=== PATIENT | male | born 1970 | race Caucasian/White ===

== ENCOUNTER 2020-03-24 18:34 | Emergency (ER) | payer MEDICAID ==
[~2020-03-24] VITALS: Ht 172.7 cm; Wt 81.0 kg
[~2020-03-24 18:34] MED LIST: HYDR-3972 PO; OMEP20TA5 PO
[2020-03-24 19:51] LABS: ALBUMIN 3.6 G/DL (3.4-5.0); ANION GAP 9 (8-16); BLOOD UREA NITROGEN 25 MG/DL (7-18); BUN/CREATININE RATIO 19.2 (5.4-32.0); CALCIUM 9.5 MG/DL (8.5-10.1); CHLORIDE 106 MMOL/L (99-107); GLUCOSE 127 MG/DL (70-104); POTASSIUM 3.8 MMOL/L (3.5-5.1); SODIUM 145 MMOL/L (135-145); TOTAL CARBON DIOXIDE 30.3 MMOL/L (24-32); eGFR 58 ML/MIN
[2020-03-24 19:58] LABS: BASOPHILS % (AUTO) 0.2 % (0-1); EOSINOPHILS # (AUTO) 0.1 X10'3 (0-0.9); EOSINOPHILS % (AUTO) 0.3 % (0-6); HEMOGLOBIN 14.4 g/dl (14.0-17.9); LYMPHOCYTES # (AUTO) 1.6 X10'3 (1.1-4.8); LYMPHOCYTES % (AUTO) 9.8 % (21-51); MEAN CORPUSCULAR HEMOGLOBIN 26.5 PG (27.0-31.0); MEAN CORPUSCULAR HGB CONC 32.1 g/dL (33.0-36.5); MEAN CORPUSCULAR VOLUME 82.7 FL (78-98); MEAN PLATELET VOLUME 8.1 FL (7.4-10.4); MONOCYTES # (AUTO) 0.8 X10'3 (0-0.9); MONOCYTES % (AUTO) 4.9 % (2-12); NEUTROPHILS # (AUTO) 13.7 X10'3 (1.8-7.7); NEUTROPHILS % (AUTO) 84.8 % (42-75); PLATELET COUNT 303 X10'3 (140-440); RED BLOOD COUNT 5.44 X10'6 (4.70-6.10); RED CELL DISTRIBUTION WIDTH 14.8 % (11.5-14.5); WHITE BLOOD COUNT 16.2 X10'3 (4.5-11.0)
[2020-03-24 21:09] VITALS: BP 122/80
== END 2020-03-24 22:54 | disposition home or self-care (01) ==
LOC: ER 18:34
DX: R55 Syncope and collapse (principal); R11.10 Vomiting, unspecified; F15.90 Other stimulant use, unspecified, uncomplicated; Z98.890 Other specified postprocedural states; Z79.899 Other long term (current) drug therapy
CPT/HCPCS: 36415; 70450; 80048; 85025; 93005; 99285

== ENCOUNTER 2021-04-13 10:15 | Emergency (ER) | payer MEDICAID ==
[~2021-04-13] VITALS: Ht 172.7 cm; Wt 79.5 kg
[2021-04-13 10:25] VITALS: BP 128/101
[2021-04-13] MEDS ORDERED: acetaminophen 325mg tablet PO ONE (10:50)
[2021-04-13] MEDS ORDERED: proCHLORperazine 10mg tablet PO ONE (10:50)
[2021-04-13] MEDS ORDERED: ibuprofen tablet 400 MG TABLET PO ONE (10:50)
== END 2021-04-13 12:29 | disposition home or self-care (01) ==
LOC: ER 10:16
DX: U07.1 COVID-19 (principal)
CPT/HCPCS: 87635; 99284; C9803; Q0164

== ENCOUNTER 2022-01-15 10:44 | Inpatient (IN) | payer MEDICAID ==
[~2022-01-15] VITALS: Ht 172.7 cm; Wt 81.8 kg
[~2022-01-15 10:44] MED LIST changes: +CEPH-585 PO; +IBUP-1986 PO; +OMEP20TA43 PO; -OMEP20TA5 PO
[2022-01-15] MEDS ORDERED: acetaminophen 325mg tablet PO STA (10:53)
[2022-01-15] MEDS ORDERED: piperacillin/tazo 3.375gm/50ml 50 ML IV ONE (10:55)
[2022-01-15] MEDS ORDERED: normal saline 1000ML IV soln IV ONE (10:55)
[2022-01-15] MEDS ORDERED: vancomycin/NS 1 GM ADD-VANTAGE 250 ML IV ONE (10:55)
[2022-01-15 11:08] LABS: BASOPHILS % (AUTO) 0.2 % (0-1); EOSINOPHILS % (AUTO) 0 % (0-6); HEMATOCRIT 32.5 % (42.0-52.0); HEMOGLOBIN 10.5 g/dl (14.0-17.9); LYMPHOCYTES % (AUTO) 7.1 % (21-51); MEAN CORPUSCULAR HEMOGLOBIN 25.7 PG (27.0-31.0); MEAN CORPUSCULAR HGB CONC 32.4 g/dL (33.0-36.5); MEAN CORPUSCULAR VOLUME 79.5 FL (78-98); MEAN PLATELET VOLUME 8.1 FL (7.4-10.4); MONOCYTES % (AUTO) 6.9 % (2-12); NEUTROPHILS # (AUTO) 11.8 X10'3 (1.8-7.7); NEUTROPHILS % (AUTO) 85.8 % (42-75); PLATELET COUNT 222 X10'3 (140-440); RED BLOOD COUNT 4.09 X10'6 (4.70-6.10); RED CELL DISTRIBUTION WIDTH 15.3 % (11.5-14.5); WHITE BLOOD COUNT 13.8 X10'3 (4.5-11.0)
[2022-01-15 11:34] LABS: GLUCOSE 118 MG/DL (70-104)
[2022-01-15 11:35] LABS: ALANINE AMINOTRANSFERASE 33 U/L (12-78); ALBUMIN 2.8 G/DL (3.4-5.0); ALBUMIN/GLOBULIN RATIO 0.7 (1.1-1.5); ALKALINE PHOSPHATASE 86 IU/L (46-116); ANION GAP 11 (8-16); ASPARTATE AMINO TRANSFERASE 34 U/L (10-37); BILIRUBIN,TOTAL 0.8 MG/DL (0.1-1.0); BLOOD UREA NITROGEN 20 MG/DL (7-18); BUN/CREATININE RATIO 20.8 (5.4-32.0); CALCIUM 8.3 MG/DL (8.5-10.1); CHLORIDE 97 MMOL/L (99-107); CREATININE 0.96 MG/DL (0.60-1.10); SODIUM 133 MMOL/L (135-145); TOTAL CARBON DIOXIDE 24.8 MMOL/L (24-32); TOTAL PROTEIN 6.8 G/DL (6.4-8.2); eGFR 82 ML/MIN
[2022-01-15 11:43] LABS: ETHANOL < 0.010 GM/DL (0.0-0.010)
[2022-01-15] MEDS ORDERED: POTASSIUM BICARB 20meq eff tab 20 MEQ TABLET.EFF PO PRN ×2 (12:15)
[2022-01-15] MEDS ORDERED: magnesium Cl slow-release 64mg tablet PO PRN (12:15)
[2022-01-15] MEDS ORDERED: magnesium hydroxide 30ml (MOM) UD suspension PO PRN (12:15)
[2022-01-15] MEDS ORDERED: ondansetron/PF 4mg/2ml inj IV PRN (12:15)
[2022-01-15] MEDS: normal saline 1000ml 1,000 ML IV SCH ×2 (12:15→22:26)
[2022-01-15] MEDS ORDERED: magnesium 4gm in 100ml NS 100 ML IV PRN (12:15)
[2022-01-15] MEDS ORDERED: morphine 2 MG/ML inj. syringe IV PRN ×2 (12:15)
[2022-01-15] MEDS ORDERED: potassium CL 10mEq/100ml bag 100 ML IV PRN (12:15)
[2022-01-15] MEDS ORDERED: magnesium 2GM in 50ml NS 50 ML IV PRN (12:15)
[2022-01-15] MEDS ORDERED: mag hydrox/Alum hydrox/simeth 30ml oral suspension PO PRN (12:15)
[2022-01-15 12:20] LABS: C-REACTIVE PROTEIN 19.45 MG/DL (0.0-0.5)
[2022-01-15 13:10] LABS: UA COLLECTION TYPE VOIDED
[2022-01-15 13:11] LABS: CLARITY,URINE CLEAR (Clear); COLOR,URINE YELLOW (Yellow); GLUCOSE, URINE NEGATIVE (Neg); KETONES,URINE NEGATIVE (Neg); LEUKOCYTE ESTERASE ,URINE NEGATIVE (Neg); NITRITES, URINE NEGATIVE (Neg); OCCULT BLOOD,URINE TRACE-INTACT (Neg); PROTEIN,URINE NEGATIVE (Neg); UROBILINOGEN,URINE 0.2 E.U/dL (0.2-1.0)
[2022-01-15 13:16] LABS: BACTERIA,URINE NONE SEEN /HPF (Neg); SQUAMOUS EPITHELIAL CELL,UR FEW /LPF (FEW); WBC,URINE NONE SEEN /HPF (0-4)
[2022-01-15 13:23] LABS: URINE AMPHETAMINE SCREEN POSITIVE (Neg); URINE BARBITUATE SCREEN NEGATIVE (Neg); URINE BENZODIAZEPINES SCREEN NEGATIVE (Neg); URINE CANNABINOID SCREEN NEGATIVE (Neg); URINE COCAINE SCREEN NEGATIVE (Neg); URINE METHADONE SCREEN NEGATIVE (Neg); URINE PHENCYCLIDINE SCREEN NEGATIVE (Neg)
--- NOTE | 2022-01-15 15:25 | NUR ---
TC TO PCU X 2 ATTEMPTS TO GIVE REPORT. NURSE NOT AVAILABLE OR READY FOR REPORT. SPOKE WITH CHARGE NURSE IN REGARDS TO NEED TO GET PATIENT TO INPATIENT ROOM AND FREE UP ER BED.
[2022-01-15 15:53] VITALS: BP 139/93
[2022-01-15] MEDS ORDERED: NO HOME MEDS (16:06)
--- NOTE | 2022-01-15 17:06 | NUR ---
Per patient, he is not homeless and that he lives in a trailer by himself
[2022-01-15] MEDS: acetaminophen 325mg tablet PO PRN (17:38)
--- NOTE | 2022-01-15 17:46 | NUR ---
Paged Dr. Bhandari PAGER ID: [phone] MESSAGE: HERIBERTO Contreras RN ext [phone] RE: Thom Guardado. Patient running fever 101F. He came her for cellulitis but he also has cough and chills. Do you want us to do covid test?
[2022-01-15 18:00] VITALS: BP 136/66
--- NOTE | 2022-01-15 18:19 | NUR ---
Problems reprioritized. Patient report given, questions answered & plan of care reviewed with Amelia VIDALES.
[2022-01-15] MEDS: K and/or MAG REPLACEMENT MC SCH (20:00)
[2022-01-15] MEDS: docusate sod 100mg capsule PO SCH (20:14)
[2022-01-15] MEDS: heparin, porcine 5000 units/ml vial SQ SCH (20:14)
[2022-01-15] MEDS ORDERED: temazepam 15mg capsule PO PRN (21:00)
[2022-01-15 22:00] VITALS: BP 116/77
[2022-01-16] MEDS: vancomycin/NS 1 GM ADD-VANTAGE 250 ML IV SCH ×2 (00:17→13:07)
[2022-01-16 02:00] VITALS: BP 151/84
[2022-01-16] MEDS: acetaminophen 325mg tablet PO PRN ×3 (02:25→17:49)
[2022-01-16 06:00] VITALS: BP 142/77
--- NOTE | 2022-01-16 06:16 | NUR ---
Problems reprioritized. Patient report given, questions answered & plan of care reviewed with FLASH Leos and FLASH Higuera.
[2022-01-16 06:31] LABS: BASOPHILS % (AUTO) 0.2 % (0-1); EOSINOPHILS # (AUTO) 0.1 X10'3 (0-0.9); EOSINOPHILS % (AUTO) 0.7 % (0-6); HEMATOCRIT 34.5 % (42.0-52.0); LYMPHOCYTES # (AUTO) 1.5 X10'3 (1.1-4.8); LYMPHOCYTES % (AUTO) 11.8 % (21-51); MEAN CORPUSCULAR VOLUME 81.5 FL (78-98); MONOCYTES # (AUTO) 0.9 X10'3 (0-0.9); MONOCYTES % (AUTO) 6.9 % (2-12); NEUTROPHILS # (AUTO) 10.5 X10'3 (1.8-7.7); NEUTROPHILS % (AUTO) 80.4 % (42-75); PLATELET COUNT 251 X10'3 (140-440); RED BLOOD COUNT 4.24 X10'6 (4.70-6.10); RED CELL DISTRIBUTION WIDTH 15.4 % (11.5-14.5); WHITE BLOOD COUNT 13.1 X10'3 (4.5-11.0)
--- NOTE | 2022-01-16 06:42 | NUR ---
Patient in room PCU 3011Q. I have received report from mary kate, and had the opportunity to ask questions and assume patient care.
[2022-01-16 06:54] LABS: ALBUMIN 2.5 G/DL (3.4-5.0); ANION GAP 9 (8-16); BILIRUBIN,TOTAL 0.5 MG/DL (0.1-1.0); BLOOD UREA NITROGEN 11 MG/DL (7-18); BUN/CREATININE RATIO 12.4 (5.4-32.0); CALCIUM 8.4 MG/DL (8.5-10.1); CHLORIDE 107 MMOL/L (99-107); CREATININE 0.89 MG/DL (0.60-1.10); GLUCOSE 97 MG/DL (70-104); POTASSIUM 3.8 MMOL/L (3.5-5.1); SODIUM 141 MMOL/L (135-145); TOTAL PROTEIN 6.6 G/DL (6.4-8.2); eGFR 89 ML/MIN
[2022-01-16 06:55] LABS: ALANINE AMINOTRANSFERASE 26 U/L (12-78); ALBUMIN/GLOBULIN RATIO 0.6 (1.1-1.5); ALKALINE PHOSPHATASE 85 IU/L (46-116); ASPARTATE AMINO TRANSFERASE 26 U/L (10-37)
[2022-01-16] MEDS: K and/or MAG REPLACEMENT MC SCH ×2 (08:00→19:28)
[2022-01-16] MEDS: normal saline 1000ml 1,000 ML IV SCH ×2 (08:15→13:07)
[2022-01-16] MEDS: docusate sod 100mg capsule PO SCH ×2 (08:55→20:31)
[2022-01-16] MEDS: heparin, porcine 5000 units/ml vial SQ SCH ×2 (08:55→20:31)
[2022-01-16 11:00] VITALS: BP 137/79
[2022-01-16 15:00] VITALS: BP 145/85
[2022-01-16] MEDS ORDERED: benzonatate 100mg capsule PO PRN (15:55)
--- NOTE | 2022-01-16 18:31 | NUR ---
Orientee documentation: I have reviewed and agree with all interventions, assessments performed and documented by FLASH Higuera.
--- NOTE | 2022-01-16 18:31 | NUR ---
Problems reprioritized. Patient report given, questions answered & plan of care reviewed with FLASH Ayala.
--- NOTE | 2022-01-16 18:37 | NUR ---
Patient in room PCU 3015. I have received report from TEMITOPE VIDALES and had the opportunity to ask questions and assume patient care.
[2022-01-16 18:40] VITALS: BP 153/75
[2022-01-16] MEDS: HYDROcodone/acetaminophen 5mg/325mg tablet PO PRN (20:32)
--- NOTE | 2022-01-16 22:00 | NUR ---
PATIENT REFUSED VITAL SIGNS
[2022-01-16] MEDS ORDERED: VANCOMYCIN LEVEL IV ONE (23:30)
[2022-01-17] MEDS: vancomycin/NS 1 GM ADD-VANTAGE 250 ML IV SCH (00:46)
[2022-01-17] MEDS: normal saline 1000ml 1,000 ML IV SCH ×2 (00:52→19:14)
[2022-01-17 02:00] VITALS: BP 160/97
--- NOTE | 2022-01-17 06:50 | NUR ---
Problems reprioritized. Patient report given, questions answered & plan of care reviewed with SHIVAM VIDALES.
[2022-01-17 06:51] LABS: BASOPHILS % (AUTO) 0.1 % (0-1); EOSINOPHILS # (AUTO) 0.2 X10'3 (0-0.9); EOSINOPHILS % (AUTO) 1.4 % (0-6); HEMATOCRIT 35.2 % (42.0-52.0); HEMOGLOBIN 11.4 g/dl (14.0-17.9); LYMPHOCYTES # (AUTO) 1.3 X10'3 (1.1-4.8); LYMPHOCYTES % (AUTO) 9.7 % (21-51); MEAN CORPUSCULAR HGB CONC 32.4 g/dL (33.0-36.5); MEAN PLATELET VOLUME 8.4 FL (7.4-10.4); MONOCYTES # (AUTO) 0.8 X10'3 (0-0.9); MONOCYTES % (AUTO) 5.8 % (2-12); NEUTROPHILS # (AUTO) 11.1 X10'3 (1.8-7.7); PLATELET COUNT 291 X10'3 (140-440); RED CELL DISTRIBUTION WIDTH 15.5 % (11.5-14.5); WHITE BLOOD COUNT 13.3 X10'3 (4.5-11.0)
[2022-01-17 07:33] LABS: ALANINE AMINOTRANSFERASE 32 U/L (12-78); ALBUMIN 2.4 G/DL (3.4-5.0); ALBUMIN/GLOBULIN RATIO 0.5 (1.1-1.5); ALKALINE PHOSPHATASE 113 IU/L (46-116); ANION GAP 11 (8-16); ASPARTATE AMINO TRANSFERASE 25 U/L (10-37); BILIRUBIN,TOTAL 0.3 MG/DL (0.1-1.0); BLOOD UREA NITROGEN 11 MG/DL (7-18); BUN/CREATININE RATIO 14.9 (5.4-32.0); CALCIUM 8.4 MG/DL (8.5-10.1); CHLORIDE 104 MMOL/L (99-107); CREATININE 0.74 MG/DL (0.60-1.10); GLUCOSE 95 MG/DL (70-104); POTASSIUM 3.9 MMOL/L (3.5-5.1); SODIUM 139 MMOL/L (135-145); TOTAL PROTEIN 6.8 G/DL (6.4-8.2); eGFR > 90 ML/MIN
[2022-01-17] MEDS: K and/or MAG REPLACEMENT MC SCH ×2 (07:35→20:00)
[2022-01-17] MEDS: heparin, porcine 5000 units/ml vial SQ SCH ×2 (07:37→19:17)
[2022-01-17] MEDS: docusate sod 100mg capsule PO SCH ×2 (07:37→19:18)
[2022-01-17 07:45] VITALS: BP 155/99
[2022-01-17] MEDS: HYDROcodone/acetaminophen 10/325mg tab PO PRN (10:25)
[2022-01-17 10:29] VITALS: BP 156/103
--- NOTE | 2022-01-17 11:20 | NUR ---
ASSUMED CARE OF THIS 51YR OLD MALE PATIENT SINCE THIS AM, ASLEEP EASILY AROUSABLE. AOX4. ON ROOM AIR. VSS. HAD 100% BREAKFAST SERVED AND CONTINUED SLEEPING. NORCO GIVEN PER PAIN SCALE. IVF ORDERED. SAFETY MAINTAINED. MONITORING ONGOING
[2022-01-17] MEDS: VANCOmycin 1250MG/NS 250ml Bag 250 ML IV SCH (12:09)
[2022-01-17] MEDS ORDERED: lisinopril 10 MG tablet PO ONE (16:25)
[2022-01-17 16:40] VITALS: BP 171/101
[2022-01-17] MEDS: acetaminophen 325mg tablet PO PRN (16:46)
--- NOTE | 2022-01-17 18:10 | NUR ---
Patient in room PCU 3015. I have received report from Roe VIDALES and had the opportunity to ask questions and assume patient care.
--- NOTE | 2022-01-17 18:11 | NUR ---
PT'S STATUS UNCHANGED. REPORT GIVEN TO FEROZ MIGUEL FOR RESUMPTION OF CARE
--- NOTE | 2022-01-17 18:53 | NUR ---
Pt refused 1800 vitals Addendum: 01/17/22 at 1854 by Angelica Melgoza LVN Amended: Links added.
[2022-01-17] MEDS: HYDROcodone/acetaminophen 5mg/325mg tablet PO PRN (19:22)
[2022-01-17 22:00] VITALS: BP 125/76
[2022-01-17] MEDS: ceFAZolin/D5W- 1GM premix 50 ML IV SCH (23:40)
[2022-01-18] MEDS: VANCOmycin 1250MG/NS 250ml Bag 250 ML IV SCH ×2 (00:19→14:50)
[2022-01-18 02:00] VITALS: BP 164/102
--- NOTE | 2022-01-18 03:47 | NUR ---
AGREE WITH BOILER OPERATOR PHYSICAL ASSESSMENT CHARTED
[2022-01-18 06:00] VITALS: BP 146/99
[2022-01-18 06:26] LABS: BASOPHILS % (AUTO) 0.3 % (0-1); EOSINOPHILS # (AUTO) 0.3 X10'3 (0-0.9); EOSINOPHILS % (AUTO) 2.6 % (0-6); HEMATOCRIT 35.2 % (42.0-52.0); HEMOGLOBIN 11.6 g/dl (14.0-17.9); LYMPHOCYTES # (AUTO) 1.6 X10'3 (1.1-4.8); MEAN CORPUSCULAR HEMOGLOBIN 26.2 PG (27.0-31.0); MEAN CORPUSCULAR HGB CONC 32.9 g/dL (33.0-36.5); MEAN CORPUSCULAR VOLUME 79.6 FL (78-98); MEAN PLATELET VOLUME 8.3 FL (7.4-10.4); MONOCYTES # (AUTO) 0.9 X10'3 (0-0.9); NEUTROPHILS # (AUTO) 9.5 X10'3 (1.8-7.7); NEUTROPHILS % (AUTO) 77.1 % (42-75); PLATELET COUNT 347 X10'3 (140-440); RED BLOOD COUNT 4.42 X10'6 (4.70-6.10); RED CELL DISTRIBUTION WIDTH 15.6 % (11.5-14.5); WHITE BLOOD COUNT 12.3 X10'3 (4.5-11.0)
--- NOTE | 2022-01-18 06:31 | NUR ---
Problems reprioritized. Patient report given, questions answered & plan of care reviewed with Hlaey VIDALES.
--- NOTE | 2022-01-18 07:05 | NUR ---
Patient in room PCU 3015. I have received report from FLASH REDMAN, and had the opportunity to ask questions and assume patient care.
[2022-01-18 07:20] LABS: ALANINE AMINOTRANSFERASE 17 U/L (12-78); ALBUMIN 2.4 G/DL (3.4-5.0); ALBUMIN/GLOBULIN RATIO 0.5 (1.1-1.5); ALKALINE PHOSPHATASE 133 IU/L (46-116); ANION GAP 9 (8-16); ASPARTATE AMINO TRANSFERASE 23 U/L (10-37); BILIRUBIN,TOTAL 0.3 MG/DL (0.1-1.0); BLOOD UREA NITROGEN 12 MG/DL (7-18); BUN/CREATININE RATIO 15.2 (5.4-32.0); CALCIUM 8.6 MG/DL (8.5-10.1); CHLORIDE 101 MMOL/L (99-107); CREATININE 0.79 MG/DL (0.60-1.10); GLUCOSE 92 MG/DL (70-104); POTASSIUM 3.9 MMOL/L (3.5-5.1); SODIUM 137 MMOL/L (135-145); TOTAL CARBON DIOXIDE 27.1 MMOL/L (24-32); TOTAL PROTEIN 6.9 G/DL (6.4-8.2); eGFR > 90 ML/MIN
[2022-01-18] MEDS: K and/or MAG REPLACEMENT MC SCH ×2 (08:00→20:00)
[2022-01-18] MEDS: ceFAZolin/D5W- 1GM premix 50 ML IV SCH ×3 (08:34→23:45)
[2022-01-18] MEDS: heparin, porcine 5000 units/ml vial SQ SCH ×2 (08:35→20:35)
[2022-01-18] MEDS: docusate sod 100mg capsule PO SCH ×2 (08:36→20:00)
[2022-01-18] MEDS: HYDROcodone/acetaminophen 5mg/325mg tablet PO PRN (08:36)
[2022-01-18] MEDS: lisinopril 10 MG tablet PO SCH (08:37)
[2022-01-18 11:00] VITALS: BP 141/95
[2022-01-18 15:00] VITALS: BP 155/98
[2022-01-18] MEDS: normal saline 1000ml 1,000 ML IV SCH (16:57)
--- NOTE | 2022-01-18 18:17 | NUR ---
Problems reprioritized. Patient report given, questions answered & plan of care reviewed with REGINALD RN.
[2022-01-18 18:30] VITALS: BP 156/98
[2022-01-18] MEDS: HYDROcodone/acetaminophen 10/325mg tab PO PRN (18:57)
[2022-01-18 22:00] VITALS: BP 163/100
[2022-01-18] MEDS ORDERED: VANCOMYCIN LEVEL IV ONE (23:30)
[2022-01-19] MEDS: VANCOmycin 1250MG/NS 250ml Bag 250 ML IV SCH (00:40)
[2022-01-19 02:00] VITALS: BP 141/99
[2022-01-19] MEDS: normal saline 1000ml 1,000 ML IV SCH (03:26)
[2022-01-19 06:00] VITALS: BP 153/106
[2022-01-19 06:07] LABS: BASOPHILS % (AUTO) 0.3 % (0-1); EOSINOPHILS # (AUTO) 0.5 X10'3 (0-0.9); EOSINOPHILS % (AUTO) 4.1 % (0-6); HEMATOCRIT 38.3 % (42.0-52.0); HEMOGLOBIN 12.3 g/dl (14.0-17.9); LYMPHOCYTES # (AUTO) 1.8 X10'3 (1.1-4.8); LYMPHOCYTES % (AUTO) 16.5 % (21-51); MEAN CORPUSCULAR HEMOGLOBIN 25.6 PG (27.0-31.0); MEAN CORPUSCULAR VOLUME 79.8 FL (78-98); MONOCYTES # (AUTO) 0.9 X10'3 (0-0.9); MONOCYTES % (AUTO) 8.1 % (2-12); NEUTROPHILS # (AUTO) 7.9 X10'3 (1.8-7.7); PLATELET COUNT 380 X10'3 (140-440); RED CELL DISTRIBUTION WIDTH 15.2 % (11.5-14.5); WHITE BLOOD COUNT 11.1 X10'3 (4.5-11.0)
[2022-01-19 06:31] LABS: ALANINE AMINOTRANSFERASE 44 U/L (12-78); ALBUMIN 2.4 G/DL (3.4-5.0); ALBUMIN/GLOBULIN RATIO 0.5 (1.1-1.5); ALKALINE PHOSPHATASE 140 IU/L (46-116); ANION GAP 10 (8-16); ASPARTATE AMINO TRANSFERASE 28 U/L (10-37); BILIRUBIN,TOTAL 0.3 MG/DL (0.1-1.0); BLOOD UREA NITROGEN 17 MG/DL (7-18); BUN/CREATININE RATIO 20.5 (5.4-32.0); CALCIUM 8.9 MG/DL (8.5-10.1); CHLORIDE 102 MMOL/L (99-107); CREATININE 0.83 MG/DL (0.60-1.10); GLUCOSE 93 MG/DL (70-104); POTASSIUM 4.1 MMOL/L (3.5-5.1); SODIUM 138 MMOL/L (135-145); TOTAL CARBON DIOXIDE 26.4 MMOL/L (24-32); TOTAL PROTEIN 7.1 G/DL (6.4-8.2); eGFR > 90 ML/MIN
--- NOTE | 2022-01-19 06:49 | NUR ---
Patient in room PCU 3015. I have received report from FLASH MONTELONGO, and had the opportunity to ask questions and assume patient care.
[2022-01-19] MEDS: K and/or MAG REPLACEMENT MC SCH (07:37)
[2022-01-19] MEDS: ceFAZolin/D5W- 1GM premix 50 ML IV SCH (08:23)
[2022-01-19] MEDS: docusate sod 100mg capsule PO SCH (08:24)
[2022-01-19] MEDS: lisinopril 10 MG tablet PO SCH (08:24)
[2022-01-19] MEDS: heparin, porcine 5000 units/ml vial SQ SCH (08:25)
[2022-01-19] MEDS: HYDROcodone/acetaminophen 5mg/325mg tablet PO PRN (08:26)
[2022-01-19] MEDS ORDERED: CEPH-585 PO (09:50)
[2022-01-19] MEDS ORDERED: DOXY100C2 PO (09:50)
[2022-01-19 11:00] VITALS: BP 147/119
[2022-01-19] MEDS ORDERED: VANCOMYCIN 1,500MG inj. 1,500 MG in normal saline 500ml IV soln 300 ML IV SCH (12:00)
--- NOTE | 2022-01-19 12:09 | NUR ---
Patient's PIV in right forearm discontinued tip intact. Discharge and follow up instructions given with understanding verbalized and signed. Medications faxed to [facility] [place]. Patient was given information about MTM services, he did not wait for services and taken to front of hospital via wheelchair to walk to friends house with personal belongings, including crutches, condition stable per MD.
--- NOTE | 2022-01-19 13:11 | NUR ---
PRESSURE ULCER EDUCATION: DEFINITION: A pressure ulcer is an area of skin that breaks down when you stay in one position too long. The constant pressure against the skin reduces the blood flow to that area and the affected tissue dies. CAUSES: "Being bedridden or in a wheelchair "Fragile skin "Having a chronic condition, such as diabetes or vascular disease "Inability to move certain parts of your body without assistance "Older age "Incontinence of urine or stool SYMPTOMS: "A reddened area that DOES NOT turn white when pressed on - this can be the beginning of a pressure ulcer "A blister, deep sore or a crater - these can be advanced pressure ulcers FIRST AID: "Relieve the pressure on this area "Keep the area clean and dry "Call your primary doctor if you see any of the above symptoms "DO NOT massage the area "DO NOT use a donut shaped or ring shaped pillow- these actually interfere with the blood flow and cause complications PREVENTION: "Check for pressure ulcers everyday "Change position at least every two hours to relieve pressure "Use items that help relieve pressure- pillows, sheepskin, foam padding, and powders. "Keep skin clean and dry "Eat healthy well balanced meals "Exercise daily IF YOU SEE ANY OF THESE SYMPTOMS WHILE IN THE HOSPITAL - TELL YOUR NURSE IMMEDIATELY. IF YOU SEE ANY OF THESE SYMPTOMS WHILE AT HOME OR HAVE ANY QUESTIONS OR CONCERNS ABOUT PRESSURE ULCERS - CALL YOUR PRIMARY DOCTOR IMMEDIATELY. Addendum: 01/19/22 at 1322 by Chery Hassan LVN Amended: Links added.
[2022-01-20] MEDS ORDERED: VANCOMYCIN LEVEL IV ONE (23:30)
== END 2022-01-19 12:02 | disposition home or self-care (01) | DRG 383 ==
LOC: ER 10:44 → ED HOLD 12:18 → PCU 3S 15:47
PROVIDERS: ADMIT Internal Medicine; ATTEND Internal Medicine
DX: L03.116 Cellulitis of left lower limb (principal); F15.10 Other stimulant abuse, uncomplicated; I10 Essential (primary) hypertension; Z20.822 Contact with and (suspected) exposure to COVID-19; R05.9 Cough, unspecified; F17.210 Nicotine dependence, cigarettes, uncomplicated; Z90.49 Acquired absence of other specified parts of digestive tract; Z71.51 Drug abuse counseling and surveillance of drug abuser; Z71.6 Tobacco abuse counseling
CPT/HCPCS: 36415; 71045; 80053; 80202; 80305; 80320; 81001; 83605; 84145; 85025; 86140; 87040; 87081; 87811; 93005; 93971; 96365; 97116; 97161; 97530; 99285; G0378; J0690; J1644; J2543; J3370; J7030

== ENCOUNTER 2022-10-10 14:58 | Emergency (ER) | payer MEDICAID ==
[~2022-10-10] VITALS: Ht 172.7 cm; Wt 84.0 kg
[~2022-10-10 14:58] MED LIST changes: -HYDR-3972 PO; -IBUP-1986 PO; -OMEP20TA43 PO
[2022-10-10] MEDS ORDERED: HYDROcodone/acetaminophen 10/325mg tab PO ONE (16:25)
[2022-10-10] MEDS ORDERED: HYDR-3973 PO (16:25)
[2022-10-10 16:44] VITALS: BP 163/120
== END 2022-10-10 16:51 | disposition home or self-care (01) ==
LOC: ER 14:59
DX: S22.31XA Fracture of one rib, right side, initial encounter for closed fracture (principal); F15.90 Other stimulant use, unspecified, uncomplicated; Z90.49 Acquired absence of other specified parts of digestive tract; W18.39XA Other fall on same level, initial encounter; Y93.89 Activity, other specified; Y92.89 Other specified places as the place of occurrence of the external cause; Y99.8 Other external cause status
CPT/HCPCS: 71045; 99283; 99284